=== PATIENT | female | born 1970 | race Caucasian/White ===

== ENCOUNTER 2017-11-09 12:51 | Emergency (ER) | payer MEDICAID, SELFPAY ==
[2017-11-09 12:52] VITALS: BP 161/79; PULSE 91; RESP 14; TEMP 36.3; O2SAT 97; BMI 22.6
--- NOTE | 2017-11-09 14:31 | ED.VISSUMM ---
- ER Visit Summary Date of Service: 11/09/17 Chief Complaint: History of Present Illness: The patient is a 47 F right foot pain presenting with right foot pain. Patient fell on Tuesday after tripping. She went to [facility] and was found to have a right ankle fracture. She was given a boot orthosis and advised to use crutches and nonweightbearing. She was given Percocet. She has run out of the Percocet. She states yesterday she was trying to use the crutches and slipped and fell. She states she hit her right foot. She did not hit her head or lose consciousness. No other injuries. Physical Examination: Vitals are stable. Patient is afebrile. Alert no acute distress. HEENT exam is unremarkable. Neck is supple. Lungs are clear and equal bilaterally. Heart is regular rate and rhythm. Abdomen is soft nontender nondistended. Extremities right lateral ankle tenderness and swelling. Mild right midfoot tenderness. Normal pulse Skin is warm and dry. No focal neurologic deficit. Remainder of exam is unremarkable. Emergency Department Course and Treatment: X-ray of the right ankle and foot show nondisplaced oblique fracture of the distal fibula. Soft tissue swelling. Hallux valgus deformity. She is advised to continue ice, elevation. Advised to continue boot orthosis and nonweightbearing. Advised to follow-up with orthopedics as scheduled on Tuesday. She is given a prescription for Percocet #6. She is advised to return to the ED for worsening complaints. Disposition: Discharge home Impression: Right distal fibula fracture This note was generated with [employer] dictation software. It may contain incorrect words, spelling, and punctuation that were not noted in review of the chart prior to signing ED Disposition - Plan for ED Patient: Chief Complaint: Lower Extremity Injury Instructions: ED Fx Ankle Lateral Malleolus Prescriptions: Oxycodone HCl/Acetaminophen [Percocet 5/325] 1 tablet PO Q6H PRN PRN 3 Days #6 tablet PRN Reason: Pain Referrals: Nazia Cain MD [Primary Care Provider] - Ezio Esparza MD [STAFF PHYSICIAN] -
--- NOTE | 2017-11-09 14:34 | ED.DEP ---
ED Disposition - Plan for ED Patient: Chief Complaint: Lower Extremity Injury Instructions: ED Fx Ankle Lateral Malleolus Prescriptions: Oxycodone HCl/Acetaminophen [Percocet 5/325] 1 tablet PO Q6H PRN PRN 3 Days #6 tablet PRN Reason: Pain Referrals: Nazia Cain MD [Primary Care Provider] - Ezio Esparza MD [STAFF PHYSICIAN] -
[2017-11-09 14:54] VITALS: BP 144/66; PULSE 72; RESP 16; O2SAT 97
== END 2017-11-09 14:54 | disposition home or self-care (01) ==
LOC: ED 13:30
PROVIDERS: Emergency Provider Emergency Medicine; Family Provider Internal Medicine; PCP Internal Medicine
DX: S82.831A Other fracture of upper and lower end of right fibula, initial encounter for closed fracture (principal); W01.0XXA Fall on same level from slipping, tripping and stumbling without subsequent striking against object, initial encounter; Y93.89 Activity, other specified; Y92.9 Unspecified place or not applicable; I10 Essential (primary) hypertension; Z72.0 Tobacco use
CPT/HCPCS: 73610; 73630; 99282